=== PATIENT | male | born 1960 | race Caucasian/White ===

== ENCOUNTER → 2017-01-12 | Outpatient (CLI) | payer BC, MEDICAID | END | disposition home or self-care (01) | LOC: RADPV 08:41 | PROVIDERS: ATTEND Hospitalist | DX: I08.1 Rheumatic disorders of both mitral and tricuspid valves (principal); I51.7 Cardiomegaly | CPT/HCPCS: 93306 ==

== ENCOUNTER → 2017-02-21 | Outpatient (CLI) | payer BC, MEDICAID | END | disposition home or self-care (01) | LOC: RADPV 10:13 | PROVIDERS: ATTEND Hospitalist | DX: R60.0 Localized edema (principal); Z87.81 Personal history of (healed) traumatic fracture | CPT/HCPCS: 93971 ==

== ENCOUNTER → 2017-04-11 | Outpatient (CLI) | payer BC, MEDICAID ==
[~2017-04-11] MED LIST: REGADENOSON 0.4 MG/5 ML PF SYRINGE IVP ONE; SESTAMIBI TC99M/UD ISOTOPE 1 EA INJ INJ ONE
[2017-04-11 08:30] VITALS: BP 154/30
[2017-04-11 08:59] VITALS: BP 157/43
== END | disposition home or self-care (01) ==
LOC: CARDMN 07:52
PROVIDERS: ATTEND Internal Medicine Cardiovascular Disease
DX: I25.9 Chronic ischemic heart disease, unspecified (principal)
CPT/HCPCS: 78452; 93017; A9500; J2785

== ENCOUNTER → 2019-01-29 | Outpatient (CLI) | payer BC, MEDICAID | END | disposition home or self-care (01) | LOC: RADPV 08:56 | PROVIDERS: ATTEND Hospitalist | DX: N28.1 Cyst of kidney, acquired (principal); R16.0 Hepatomegaly, not elsewhere classified | CPT/HCPCS: 76700 ==

== ENCOUNTER 2019-04-02 08:14 | Day surgery (SDC) | payer BC, MEDICAID ==
[~2019-04-02] VITALS: Ht 177.8 cm; Wt 72.2 kg
[~2019-04-02 08:14] MED LIST changes: -REGADENOSON 0.4 MG/5 ML PF SYRINGE IVP ONE; -SESTAMIBI TC99M/UD ISOTOPE 1 EA INJ INJ ONE; +SODIUM CHLORIDE 0.9% 1,000 ML IV ONE
[2019-04-02] MEDS ORDERED: CLON-570 PO (09:37)
[2019-04-02] MEDS ORDERED: DOXA2TAB PO (09:37)
[2019-04-02] MEDS ORDERED: PHOSLOC PO (09:37)
[2019-04-02] MEDS ORDERED: METO25 PO (09:37)
[2019-04-02] MEDS ORDERED: FOLI0.8T22 PO (09:37)
[2019-04-02] MEDS ORDERED: LISI-662 PO (09:37)
[2019-04-02] MEDS ORDERED: OS500 PO (09:37)
[2019-04-02] MEDS ORDERED: CLON1PAT13 TD (09:37)
[2019-04-02 09:40] LABS: GLUCOMETER DEV NAME(LOC) SDS.; GLUCOSE,POINT OF CARE 108 MG/DL (70-110)
[2019-04-02 10:25] LABS: PROTHROMBIN TIME 10.8 SEC (9.4-11.6)
== END 2019-04-02 13:37 | disposition home or self-care (01) ==
LOC: SURGERY 08:14 → EDSTATUS 10:00 → SURGERY 13:37
PROVIDERS: ATTEND Hospitalist
DX: R18.8 Other ascites (principal); I10 Essential (primary) hypertension; E11.9 Type 2 diabetes mellitus without complications; Z79.899 Other long term (current) drug therapy; Z79.01 Long term (current) use of anticoagulants; Z98.890 Other specified postprocedural states
CPT/HCPCS: 36415; 49083; 82042; 82962; 83615; 84157; 85049; 85610; 85730; J7030; 76942

== ENCOUNTER → 2019-09-08 | Outpatient (CLI) | payer BC, MEDICAID ==
[~2019-09-08] MED LIST changes: +CLON0.1T2 PO; +CLON1PAT13 TD; +DOXA2TAB PO; +FOLI0.8T22 PO; +LISI-662 PO; +METO25 PO; +OS500 PO; +PHOSLOC PO; -SODIUM CHLORIDE 0.9% 1,000 ML IV ONE
== END | disposition home or self-care (01) ==
LOC: RADPV 08:38
PROVIDERS: ATTEND Hospitalist
DX: R18.8 Other ascites (principal); K74.60 Unspecified cirrhosis of liver
CPT/HCPCS: 76700